=== PATIENT | male | born 2000 | race Caucasian/White ===

== ENCOUNTER 2022-03-05 10:00 | Outpatient (RCR) | payer BC, MEDICAID, SELFPAY | END 2022-03-11 23:59 | LOC: NS 10:00 | PROVIDERS: Referring Provider Nurse Practitioner; Visit Provider Nurse Practitioner | DX: Z71.3 Dietary counseling and surveillance (principal); E66.9 Obesity, unspecified | CPT/HCPCS: 97802; 97803 ==

== ENCOUNTER 2022-04-02 11:20 | Outpatient (RCR) | payer BC, MEDICAID, SELFPAY | END 2022-04-11 23:59 | LOC: NS 11:20 | PROVIDERS: Referring Provider Nurse Practitioner; Visit Provider Nurse Practitioner | DX: Z71.3 Dietary counseling and surveillance (principal); E66.9 Obesity, unspecified; Z68.54 Body mass index [BMI] pediatric, 95th percentile for age to less than 120% of the 95th percentile for age | CPT/HCPCS: 97803 ==

== ENCOUNTER 2022-05-14 16:18 | Outpatient (RCR) | payer BC, MEDICAID, SELFPAY | END 2022-06-11 23:59 | LOC: NS 16:18 | PROVIDERS: Referring Provider Nurse Practitioner; Visit Provider Nurse Practitioner | DX: Z71.3 Dietary counseling and surveillance (principal); E66.9 Obesity, unspecified | CPT/HCPCS: 97803 ==